=== PATIENT | female | born 1975 | race Caucasian/White ===

== ENCOUNTER 2023-10-27 21:56 | Emergency (ER) | payer OTHER ==
[~2023-10-27] VITALS: Ht 157.5 cm; Wt 52.2 kg
[2023-10-27] MEDS ORDERED: NITR-84 PO (22:34)
[2023-10-27] MEDS ORDERED: PHEN-704 PO (22:34)
[2023-10-27] MEDS ORDERED: PHENAZOPYRIDINE HCL 100 MG TABLET ONE (22:41)
[2023-10-27] MEDS ORDERED: NITROFURANTOIN/NITROFURAN MAC 100 MG CAPSULE PO ONE (22:41)
[2023-10-27] MEDS: PHENAZOPYRIDINE HCL 100 MG TABLET PO ONE (22:46)
[2023-10-27] MEDS: NITROFURANTOIN/NITROFURAN MAC 100 MG CAPSULE PO ONE (22:46)
[2023-10-27 22:49] LABS: *URINE HCG, QUAL NEGATIVE (NEGATIVE)
[2023-10-27 22:53] LABS: *BILIRUBIN,URIN NEGATIVE (NEGATIVE); *BLOOD, URINE 2+ (NEGATIVE); *CLARITY,URINE CLEAR (CLEAR); *COLOR,URINE YELLOW (YELLOW); *KETONES,URINE NEGATIVE (NEGATIVE); *PROTEIN,URINE NEGATIVE (NEGATIVE); *UROBILINOGEN,URINE 0.2 E.U./dl (NORMAL); LEUKOCYTE ESTERASE ,URINE 3+ (NEGATIVE); NITRITE, URINE NEGATIVE (NEGATIVE); UGLUCOSE NEGATIVE (NEGATIVE)
[2023-10-27 22:58] LABS: WBC,URINE 20-50 /HPF (0-3)
[2023-10-27 22:59] LABS: BACTERIA,URINE FEW /HPF (NONE SEEN); SQUAMOUS EPITHELIAL CELL,UR FEW /HPF (NONE SEEN)
[2023-10-27 23:00] LABS: RBC,URINE 20-50 /HPF (0-3)
[2023-10-27 23:08] VITALS: BP 114/66; O2SAT 99
== END 2023-10-27 23:08 | disposition home or self-care (01) ==
LOC: ER 22:00
DX: N39.0 Urinary tract infection, site not specified (principal); R30.0 Dysuria; R10.2 Pelvic and perineal pain; Z79.899 Other long term (current) drug therapy
CPT/HCPCS: 84703; A4606; A4663

== ENCOUNTER 2024-02-14 20:57 | Emergency (ER) | payer OTHER ==
[~2024-02-14] VITALS: Ht 152.4 cm; Wt 72.6 kg
[~2024-02-14 20:57] MED LIST: NITR-84 PO; PHEN-704 PO
[2024-02-14 21:54] LABS: *BILIRUBIN,URIN NEGATIVE (NEGATIVE); *CLARITY,URINE CLEAR (CLEAR); *COLOR,URINE YELLOW (YELLOW); *KETONES,URINE NEGATIVE (NEGATIVE); *PROTEIN,URINE NEGATIVE (NEGATIVE); *UROBILINOGEN,URINE 0.2 E.U./dl (NORMAL); LEUKOCYTE ESTERASE ,URINE NEGATIVE (NEGATIVE); NITRITE, URINE NEGATIVE (NEGATIVE); UGLUCOSE NEGATIVE (NEGATIVE)
[2024-02-14 21:59] LABS: *BLOOD, URINE TRACE (NEGATIVE)
[2024-02-14 22:20] LABS: BACTERIA,URINE MODERATE /HPF (NONE SEEN); RBC,URINE 0-3 /HPF (0-3); SQUAMOUS EPITHELIAL CELL,UR FEW /HPF (NONE SEEN); WBC,URINE 0-3 /HPF (0-3)
[2024-02-14 22:46] VITALS: BP 102/50; TEMP 98.3; O2SAT 99
== END 2024-02-14 22:47 | disposition home or self-care (01) ==
LOC: ER 20:59
DX: U07.1 COVID-19 (principal); J02.8 Acute pharyngitis due to other specified organisms; Z79.899 Other long term (current) drug therapy
CPT/HCPCS: A4606; A4663